=== PATIENT | female | born 1960 | race Caucasian/White ===

== ENCOUNTER 2017-10-06 12:49 | Emergency (ER) | payer OTHER ==
[~2017-10-06] VITALS: Ht 162.6 cm; Wt 73.0 kg
[2017-10-06] MEDS ORDERED: PANTOPRAZOLE SODIUM 40 MG/VIAL IV ONE (13:15)
[2017-10-06] MEDS ORDERED: MORPHINE SULFATE 4 MG/ML CPJ (NOT FOR IM USE) IV ONE ×2 (13:36→13:45)
[2017-10-06] MEDS ORDERED: ONDANSETRON HCL 4MG/2ML VIAL ONE (13:37)
[2017-10-06] MEDS ORDERED: ONDANSETRON HCL 4MG/2ML VIAL IV ONE ×2 (13:45→15:15)
[2017-10-06] MEDS ORDERED: SODIUM CHLORIDE 0.9% 1,000 ML IV ONE ×2 (14:29→16:50)
[2017-10-06 14:30] LABS: KETONES URINE NEGATIVE (NEGATIVE); LEUKOCYTE ESTERASE URINE 1+ (NEGATIVE); NITRITE URINE NEGATIVE (NEGATIVE); OCCULT BLOOD URINE 3+ (NEGATIVE); PROTEIN URINE 3+ (NEGATIVE); SPECIFIC GRAVITY URINE 1.018 (1.005-1.030); UROBILINOGEN URINE 0.2 E.U./dL (0.2-1.0)
[2017-10-06] MEDS ORDERED: CEFTRIAXONE 1 G PREMIX 50 ML IV ONE (14:30)
[2017-10-06 14:32] LABS: CLARITY URINE CLOUDY (CLEAR); COLOR URINE BLOODY (YELLOW)
[2017-10-06 14:52] LABS: TOTAL IRON BINDING CAPACITY 339 ug/dL (250-450)
[2017-10-06 15:05] LABS: CHLORIDE 104 mEq/L (98-107)
[2017-10-06 15:07] LABS: BASOPHILS % 0.4 % (0.0-2.0); EOSINOPHILS % 0.6 % (0.0-5.0); HEMATOCRIT. 41.5 % (36.0-48.0); HEMOGLOBIN. 14.3 g/dL (12.0-16.0); LYMPHOCYTES % 11.4 % (20.0-50.0); MEAN CORPUSCULAR HEMOGLOBIN 29.6 pg (28.0-32.0); MEAN CORPUSCULAR VOLUME 86.1 fL (81.0-99.0); MEAN PLATELET VOLUME 7.9 fl (7.4-10.4); MONOCYTES % 5.4 % (2.0-8.0); NEUTROPHILS % 82.2 % (40.0-76.0); PLATELET 244 x1000/uL (130-400); RED BLOOD CELL COUNT 4.82 mill/uL (4.2-5.4); RED CELL DISTRIBUTION WIDTH 14.1 % (11.6-14.6)
[2017-10-06 15:13] LABS: PROTHROMBIN TIME 10.7 sec (9.4-11.6)
[2017-10-06] MEDS ORDERED: FENTANYL CITRATE/PF 50MCG/ML 2ML VIAL IV ONE (15:15)
[2017-10-06] MEDS ORDERED: PHENAZOPYRIDINE HCL 200MG TABLET PO ONE (15:45)
[2017-10-06 16:33] VITALS: BP 106/65
[2017-10-06] MEDS ORDERED: LEVOFLOXACIN 500MG PREMIX 100 ML IV ONE (17:00)
[2017-10-06] MEDS ORDERED: OXYBUTYNIN CHLORIDE 5MG TABLET PO ONE (17:15)
[2017-10-06] MEDS ORDERED: LEVOFLOXACIN 500MG TABLET PO ONE (17:45)
== END 2017-10-06 17:51 | disposition home or self-care (01) ==
LOC: ER 13:53 → EDBEDREQSVC 16:59 → EDBEDREQ 16:59 → CANRESERV 17:01 → ENRESERV 17:01 → EDBEDREQSVC 17:11 → CANBEDREQ 17:38 → ER 17:51
DX: N30.01 Acute cystitis with hematuria (principal); Z85.3 Personal history of malignant neoplasm of breast; Z90.11 Acquired absence of right breast and nipple; Z90.710 Acquired absence of both cervix and uterus
CPT/HCPCS: 36415; 74176; 80053; 81003; 83540; 83550; 83690; 83880; 85025; 85044; 85610; 85730; 86850; 86900; 86901; 87077; 87086; 87186; 96365; 96375; 99285; J0696; J2270; J2405; J7030